=== PATIENT | male | born 1995 | race Two or more races ===

== ENCOUNTER 2021-09-09 08:19 | Emergency (ER) | payer SELFPAY ==
[~2021-09-09] VITALS: Ht 165.1 cm; Wt 77.1 kg
[2021-09-09 08:22] VITALS: BP 134/91
[2021-09-09] MEDS ORDERED: TRIA0.02 TOP (08:38)
== END 2021-09-09 08:55 | disposition home or self-care (01) ==
LOC: ER 08:19
DX: L25.9 Unspecified contact dermatitis, unspecified cause (principal)

== ENCOUNTER 2023-12-01 11:02 | Emergency (ER) | payer MEDICAID ==
[~2023-12-01] VITALS: Ht 165.1 cm; Wt 69.0 kg
[2023-12-01 11:02] VITALS: PULSE 79; RESP 16; TEMP 98; O2SAT 97
[~2023-12-01 11:02] MED LIST: TRIA0.02 TOP
[2023-12-01] MEDS ORDERED: NAPR-746 PO (12:23)
[2023-12-01 12:29] VITALS: BP 139/64; PULSE 72; RESP 18; O2SAT 96
== END 2023-12-01 12:31 | disposition home or self-care (01) ==
LOC: ER 11:02
DX: S62.646A Nondisplaced fracture of proximal phalanx of right little finger, initial encounter for closed fracture (principal); Z79.899 Other long term (current) drug therapy; W18.39XA Other fall on same level, initial encounter; Y93.89 Activity, other specified; Y92.89 Other specified places as the place of occurrence of the external cause; Y99.8 Other external cause status
CPT/HCPCS: 29130; 73130